=== PATIENT | female | born 1995 | race Two or more races ===

== ENCOUNTER 2022-09-01 07:20 | Inpatient (IN) | payer OTHER ==
[2022-09-01 08:44] VITALS: BMI 27.7
[2022-09-01 09:22] LABS: BASO % 0.4 % (0-2.0); EOS % 1.8 % (0-4.5); HEMATOCRIT 32.3 % (32.4-45.2); HEMOGLOBIN 10.5 GM/dL (10.7-15.3); LYMPH % 18.7 % (8-40); MCH 26.5 pg (25.7-33.7); MCHC 32.7 g/dl (32.0-36.0); MEAN PLT VOLUME 8.5 fl (7.5-11.1); NEUT % 72.1 % (42.8-82.8); PLATELET COUNT 188 10^3/uL (134-434); RBC 3.99 M/mm3 (3.60-5.2); RDW 14.9 % (11.6-15.6); WHITE BLOOD COUNT 9.6 K/mm3 (4.0-10.0)
[2022-09-01 09:24] LABS: INR 0.9 (0.83-1.09); PROTHROMBIN TIME (PATIENT) 10.3 SEC (9.7-13.0)
[2022-09-01 09:27] LABS: ACTIVATED PTT 28.4 SECONDS (25.2-36.5)
[2022-09-01 09:35] LABS: CALCIUM 8.9 mg/dL (8.5-10.1)
[2022-09-01 09:36] LABS: BLOOD UREA NITROGEN 6.9 mg/dL (7-18)
[2022-09-01 09:39] LABS: CREATININE 0.6 mg/dL (0.55-1.3)
[2022-09-01] MEDS ORDERED: DINOPROSTONE 10 MG VAGINAL SUPPOSITORY VG ONE (10:39)
[2022-09-01] MEDS ORDERED: SODIUM CHLORIDE 500 ML IV STA (17:12)
[2022-09-01] MEDS ORDERED: SODIUM CHLORIDE 1,000 ML IV SCH (17:15)
[2022-09-02] MEDS ORDERED: morphine SULFATE 4 MG/ML VIAL IVPB ONE ×3 (02:47→11:02)
[2022-09-02] MEDS ORDERED: DEXTROSE 5%-LACTATED RINGERS 1,000 ML IV SCH (03:00)
[2022-09-02] MEDS ORDERED: OXYTOCIN 30 UNITS in 0.9% NS 30 UNIT/500 ML INFUS.BAG IVPB SCH (07:45)
[2022-09-02] MEDS ORDERED: morphine SULFATE 4 MG/ML VIAL ONE (11:04)
[2022-09-02] MEDS ORDERED: OXYTOCIN 20 UNITS in 0.9% NS 20 UNIT/1,000 ML INFUS.BAG IV ONE (11:27)
[2022-09-02] MEDS ORDERED: LIDOCAINE HCL 1% PRESERVATIVE FREE - 30ML VIAL ONE (11:57)
[2022-09-02 12:25] LABS: CORD BASE EXCESS -3.7 mmol/L (0-2); CORD HCO3 24.3 mmHg (20-29); CORD PCO2 54.2 mmHg (30-78); CORD pH 7.269 (7.14-7.44)
[2022-09-02] MEDS ORDERED: BENZOCAINE 28 GM HEMORRHOIDAL OINTMENT TP PRN (12:35)
[2022-09-02] MEDS ORDERED: WITCH HAZEL 50% (TUCKS) 40 PAD/JAR PAD TP PRN (12:35)
[2022-09-02] MEDS ORDERED: BENZOCAINE 20% 57 GM BOTTLE TP PRN (12:35)
[2022-09-02] MEDS ORDERED: ACETAMINOPHEN 325 MG TABLET (FP) PO PRN (12:35)
[2022-09-02] MEDS ORDERED: OXYTOCIN 20 UNITS in 0.9% NS 20 UNIT/1,000 ML INFUS.BAG IV SCH (12:45)
[2022-09-02] MEDS: FERROUS SO4 325 MG TABLET (FP) PO SCH (17:44)
[2022-09-02] MEDS: IBUPROFEN 600 MG TABLET (FP) PO PRN (20:05)
[2022-09-03] MEDS: FERROUS SO4 325 MG TABLET (FP) PO SCH ×3 (08:05→18:12)
[2022-09-03] MEDS: IBUPROFEN 600 MG TABLET (FP) PO PRN ×3 (08:05→21:06)
[2022-09-03 09:20] LABS: BASO % 0.4 % (0-2.0); EOS % 0.7 % (0-4.5); HEMATOCRIT 24.9 % (32.4-45.2); HEMOGLOBIN 7.8 GM/dL (10.7-15.3); LYMPH % 13.3 % (8-40); MCH 25.2 pg (25.7-33.7); MCHC 31.3 g/dl (32.0-36.0); MEAN CELL VOLUME 80.4 fl (80-96); MEAN PLT VOLUME 8.7 fl (7.5-11.1); MONO % 6.1 % (3.8-10.2); NEUT % 79.5 % (42.8-82.8); PLATELET COUNT 144 10^3/uL (134-434); RDW 14.8 % (11.6-15.6); WHITE BLOOD COUNT 13.7 K/mm3 (4.0-10.0)
[2022-09-03] MEDS: PRENATAL VITAMINS W/ FOLIC ACID TABLET (FP) PO SCH (09:40)
[2022-09-03] MEDS ORDERED: SENNOSIDES/DOCUSATE COMBO (SENNA PLUS) TABLET (UD) PO PRN (22:00)
[2022-09-03 22:13] VITALS: RESP 18
[2022-09-04] MEDS: IBUPROFEN 600 MG TABLET (FP) PO PRN ×3 (02:55→12:38)
[2022-09-04] MEDS: FERROUS SO4 325 MG TABLET (FP) PO SCH ×2 (09:27→12:38)
[2022-09-04] MEDS: PRENATAL VITAMINS W/ FOLIC ACID TABLET (FP) PO SCH (09:27)
[2022-09-04 11:11] VITALS: BP 112/62; PULSE 82; TEMP 98.2
== END 2022-09-04 13:20 | disposition home or self-care (01) | DRG 560 ==
LOC: JLDR 07:20 → J3W 09-02 13:45
PROVIDERS: ADMIT Obstetrics & Gynecology Maternal & Fetal Medicine; ATTEND Obstetrics & Gynecology Maternal & Fetal Medicine
PROC: 3E0P7VZ Introduction of Hormone into Female Reproductive, Via Natural or Artificial Opening (ICD-10-PCS; 2022-09-01)
PROC: 10E0XZZ Delivery of Products of Conception, External Approach (ICD-10-PCS; principal; 2022-09-02)
PROC: 0HQ9XZZ Repair Perineum Skin, External Approach (ICD-10-PCS; 2022-09-02)
DX: O26.23 Pregnancy care for patient with recurrent pregnancy loss, third trimester (principal); Z37.0 Single live birth; O99.12 Other diseases of the blood and blood-forming organs and certain disorders involving the immune mechanism complicating childbirth; D68.4 Acquired coagulation factor deficiency; O70.0 First degree perineal laceration during delivery; Z3A.39 39 weeks gestation of pregnancy
CPT/HCPCS: 36415; 36600; 59409; 80048; 82803; 85025; 85610; 85730; 86780; 86850; 86900; 86901; C9803-CS; U0003; U0005